=== PATIENT | male | born 1940 | race Caucasian/White ===

== ENCOUNTER 2017-04-29 16:17 | Inpatient (IN) | payer OTHER, MEDICAID ==
[~2017-04-29] VITALS: Ht 175.3 cm; Wt 81.7 kg
[~2017-04-29 16:17] MED LIST: ADA60 PO; ADALAT CC30 MG PO; ANT12.5 PO; ASPIR 8181 MG PO; BACTROBAN2% TP; CLINDAMYCI600 MG/50 IV; CLONIDINE HCL0.1 MG PO; COL100 PO; DIALYVITE 8001 TAB PO; GUAIFENESIN AN118 ML PO; HIB480 TP; LAC PO; LEV250PM IV; LEVAQUIN750 MG PO; LOPRESSOR100 MG PO; LOPRESSOR50 MG PO; MEVACOR40 MG PO; PHOSLO667 MG PO; ZOFI IV; ZYL100 PO
[2017-04-29 17:45] LABS: BASOPHIL % 0.9 % (0-2); PLATELET COUNT 191 x10^3mcL (130-400)
[2017-04-29 17:49] LABS: RED CELL DISTRIBUTION WIDTH 15.7 % (11.5-14.5)
[2017-04-29 18:00] LABS: ALKALINE PHOSPHATASE 69 U/L (46-116); ALT/SGPT 14 U/L (16-63); AST/SGOT 15 U/L (15-37); BILIRUBIN TOTAL 0.7 mg/dL (0.20-1.00); CALCIUM 9.3 mg/dL (8.5-10.1); CARBON DIOXIDE 28.2 mmol/L (21-32); CHLORIDE SERUM 96 mmol/L (98-107); GLUCOSE SERUM 95 mg/dL (74-106); LIPASE 75 IU/L (73-393); POTASSIUM SERUM 3.1 mmol/L (3.5-5.1); SODIUM SERUM 135 mmol/L (136-145); TOTAL PROTEIN, SERUM 7.4 g/dL (6.4-8.2); TRIGLYCERIDES 43 mg/dL (<150)
[2017-04-29 18:02] LABS: ALBUMIN 3.2 g/dL (3.4-5.0); CHOLESTEROL 112 mg/dL (<200); CHOLESTEROL/HDL RATIO 1.7; HDL CHOLESTEROL 66 mg/dL (40-60)
[2017-04-29 18:09] LABS: T3 TOTAL 0.45 ng/mL
[2017-04-29 18:22] LABS: FREE T4 1.3 ng/dL (0.76-1.46); FREE THYROXINE INDEX 2.3 ug/dL (1.4-4.5); T4(THYROXINE) 6.1 ug/dL (4.7-13.3)
[2017-04-29 20:24] VITALS: BP 120/73
[2017-04-29 21:00] VITALS: BP 120/73
[2017-04-29] MEDS ORDERED: RES30 PO (21:30)
[2017-04-30 05:31] VITALS: BP 109/69
[2017-04-30 07:35] VITALS: BP 124/70
[2017-04-30 07:43] LABS: BASOPHIL % 0.3 % (0-2); PLATELET COUNT 143 x10^3mcL (130-400)
[2017-04-30 07:46] LABS: RED CELL DISTRIBUTION WIDTH 15.2 % (11.5-14.5)
[2017-04-30 07:56] LABS: CALCIUM 8.8 mg/dL (8.5-10.1); CARBON DIOXIDE 26.2 mmol/L (21-32); CHLORIDE SERUM 97 mmol/L (98-107); GLUCOSE SERUM 96 mg/dL (74-106); PHOSPHOROUS 3.5 mg/dL (2.5-4.9); POTASSIUM SERUM 3.4 mmol/L (3.5-5.1); SODIUM SERUM 134 mmol/L (136-145)
[2017-04-30 07:59] LABS: CREATININE SERUM 5.1 mg/dL (0.7-1.3)
[2017-04-30 12:11] VITALS: BP 137/78
[2017-04-30 21:27] VITALS: BP 133/80
[2017-05-01] VITALS (8 sets, daily range): BP systolic 102–139; BP diastolic 58–76
[2017-05-01 07:08] LABS: BASOPHIL % 0.4 % (0-2); PLATELET COUNT 151 x10^3mcL (130-400)
[2017-05-01 07:28] LABS: CALCIUM 8.9 mg/dL (8.5-10.1); CARBON DIOXIDE 27.7 mmol/L (21-32); CHLORIDE SERUM 100 mmol/L (98-107); GLUCOSE SERUM 117 mg/dL (74-106); POTASSIUM SERUM 3.1 mmol/L (3.5-5.1); SODIUM SERUM 139 mmol/L (136-145)
[2017-05-01 07:39] LABS: CREATININE SERUM 4.2 mg/dL (0.7-1.3)
[2017-05-01 18:40] LABS: SOURCE FLUID THORACENTESIS
[2017-05-01 19:55] LABS: APPEARANCE FLUID HAZY; COLOR FLUID YELLOW; RBC FLUID 40 /cumm; WBC FLUID 180 /cumm
[2017-05-01 19:58] LABS: LYMPHOCYTE FLUID 42 %; MONOCYTE FLUID 14 %
[2017-05-02] VITALS (10 sets, daily range): BP systolic 110–135; BP diastolic 63–76
[2017-05-02 05:57] LABS: BASOPHIL % 0.3 % (0-2); PLATELET COUNT 147 x10^3mcL (130-400)
[2017-05-02 06:23] LABS: CARBON DIOXIDE 27.1 mmol/L (21-32); CHLORIDE SERUM 100 mmol/L (98-107); GLUCOSE SERUM 96 mg/dL (74-106); POTASSIUM SERUM 4.1 mmol/L (3.5-5.1); SODIUM SERUM 137 mmol/L (136-145)
[2017-05-02 06:44] LABS: RED CELL DISTRIBUTION WIDTH 14.9 % (11.5-14.5)
[2017-05-02 07:11] LABS: CREATININE SERUM 5.3 mg/dL (0.7-1.3)
[2017-05-02 16:28] LABS: APPEARANCE FLUID HAZY; COLOR FLUID PALE YELLOW; RBC FLUID 277 /cumm; SOURCE FLUID THORACENTESIS; WBC FLUID 5.56 /cumm
[2017-05-03] MEDS ORDERED: COR200 PO (04:10)
[2017-05-03] MEDS ORDERED: XARELTO10 M1 PO (04:13)
[2017-05-03] MEDS ORDERED: LOP100 (05:13)
[2017-05-03] MEDS ORDERED: MEV20 (05:15)
[2017-05-03 05:24] VITALS: BP 106/65
[2017-05-03 05:31] VITALS: BP 106/65
[2017-05-03 07:40] VITALS: BP 150/72
[2017-05-03 08:55] VITALS: Ht 175.3 cm; Wt 81.7 kg
== END 2017-05-03 09:05 | disposition home or self-care (01) | DRG 308 ==
LOC: ED 16:17 → DU 18:45
PROVIDERS: Family Medicine; Specialist; ADMIT Family Medicine
DX: I48.91 Unspecified atrial fibrillation (principal); N18.6 End stage renal disease; I50.43 Acute on chronic combined systolic (congestive) and diastolic (congestive) heart failure; D68.69 Other thrombophilia; I13.2 Hypertensive heart and chronic kidney disease with heart failure and with stage 5 chronic kidney disease, or end stage renal disease; E87.1 Hypo-osmolality and hyponatremia; E87.6 Hypokalemia; E11.59 Type 2 diabetes mellitus with other circulatory complications; D63.1 Anemia in chronic kidney disease; I35.0 Nonrheumatic aortic (valve) stenosis; E78.5 Hyperlipidemia, unspecified; M10.9 Gout, unspecified; Z99.2 Dependence on renal dialysis; Z68.26 Body mass index [BMI] 26.0-26.9, adult; Z85.51 Personal history of malignant neoplasm of bladder
CPT/HCPCS: 32555; 82962; 83880; 84439; 88344; 97110-GP; 97116-GP; 97530-GP; C1729; J1644; J1956; J3490; J7030; J7040; J7050; Q0092

== ENCOUNTER 2017-05-08 11:40 | Emergency (ER) | payer OTHER, MEDICAID ==
[~2017-05-08 11:40] MED LIST changes: +COR200 PO; +LOP100; +MEV20; +RES30 PO; +XARELTO10 M1 PO
[2017-05-08 13:39] VITALS: BP 108/77
== END 2017-05-08 13:39 | disposition home or self-care (01) ==
LOC: ED 11:40
DX: K59.00 Constipation, unspecified (principal); R10.30 Lower abdominal pain, unspecified; E11.22 Type 2 diabetes mellitus with diabetic chronic kidney disease; I12.0 Hypertensive chronic kidney disease with stage 5 chronic kidney disease or end stage renal disease; N18.6 End stage renal disease; Z99.2 Dependence on renal dialysis; Z88.0 Allergy status to penicillin; Z79.2 Long term (current) use of antibiotics; Z79.899 Other long term (current) drug therapy

== ENCOUNTER 2017-05-16 15:01 | Inpatient (IN) | payer OTHER, MEDICAID ==
[~2017-05-16] VITALS: Ht 177.8 cm; Wt 79.0 kg
[2017-05-16 16:31] LABS: BASOPHIL % 0.4 % (0-2); PLATELET COUNT 181 x10^3mcL (130-400)
[2017-05-16 16:34] LABS: RED CELL DISTRIBUTION WIDTH 16.5 % (11.5-14.5)
[2017-05-16 16:49] LABS: ALKALINE PHOSPHATASE 57 U/L (46-116); ALT/SGPT 14 U/L (16-63); AST/SGOT 10 U/L (15-37); BILIRUBIN TOTAL 0.65 mg/dL (0.20-1.00); CALCIUM 8.2 mg/dL (8.5-10.1); CARBON DIOXIDE 24.7 mmol/L (21-32); CHLORIDE SERUM 92 mmol/L (98-107); GLUCOSE SERUM 150 mg/dL (74-106); POTASSIUM SERUM 3.4 mmol/L (3.5-5.1); SODIUM SERUM 130 mmol/L (136-145)
[2017-05-16 16:50] LABS: ALBUMIN 2.5 g/dL (3.4-5.0)
[2017-05-16 16:52] LABS: CREATININE SERUM 5.8 mg/dL (0.7-1.3)
[2017-05-16] MEDS ORDERED: GABAPENTIN (18:02)
[2017-05-16] MEDS ORDERED: HUMALOG100 U/ML SC (18:02)
[2017-05-16 19:19] VITALS: BP 125/82
[2017-05-16] MEDS ORDERED: GABAPENTIN300 M4 PO (20:34)
[2017-05-16 21:09] LABS: PHOSPHOROUS 4.4 mg/dL (2.5-4.9)
[2017-05-16 21:12] LABS: CHOLESTEROL/HDL RATIO 1.6
[2017-05-16 21:19] LABS: T3 TOTAL 0.36 ng/mL
[2017-05-16 21:43] VITALS: BP 122/81
[2017-05-16 21:54] LABS: FREE T4 0.9 ng/dL (0.76-1.46); FREE THYROXINE INDEX 2.2 ug/dL (1.4-4.5); T4(THYROXINE) 5.9 ug/dL (4.7-13.3)
[2017-05-17] VITALS (12 sets, daily range): BP systolic 79–114; BP diastolic 48–79
[2017-05-17 06:21] LABS: BASOPHIL % 0.3 % (0-2); PLATELET COUNT 171 x10^3mcL (130-400)
[2017-05-17 06:38] LABS: CALCIUM 8.4 mg/dL (8.5-10.1); CARBON DIOXIDE 26.4 mmol/L (21-32); CHLORIDE SERUM 92 mmol/L (98-107); GLUCOSE SERUM 141 mg/dL (74-106); MAGNESIUM 2.2 mg/dL (1.8-2.4); PHOSPHOROUS 5.6 mg/dL (2.5-4.9); POTASSIUM SERUM 3.8 mmol/L (3.5-5.1); SODIUM SERUM 129 mmol/L (136-145)
[2017-05-17 06:49] LABS: CREATININE SERUM 6.2 mg/dL (0.7-1.3)
[2017-05-17 07:25] LABS: RED CELL DISTRIBUTION WIDTH 16.6 % (11.5-14.5)
[2017-05-18 06:25] VITALS: BP 99/59
[2017-05-18 07:45] VITALS: BP 91/58
[2017-05-18 10:03] VITALS: BP 90/58
[2017-05-18 15:03] VITALS: BP 108/75
[2017-05-18 17:50] VITALS: BP 110/64
[2017-05-18 21:30] VITALS: BP 113/67
[2017-05-19] VITALS (9 sets, daily range): BP systolic 98–123; BP diastolic 54–63
[2017-05-19 06:07] LABS: BASOPHIL % 0.2 % (0-2); PLATELET COUNT 131 x10^3mcL (130-400)
[2017-05-19 06:41] LABS: RED CELL DISTRIBUTION WIDTH 16.7 % (11.5-14.5)
[2017-05-19 06:45] LABS: CALCIUM 8.4 mg/dL (8.5-10.1); CARBON DIOXIDE 23.9 mmol/L (21-32); CHLORIDE SERUM 93 mmol/L (98-107); GLUCOSE SERUM 160 mg/dL (74-106); MAGNESIUM 1.9 mg/dL (1.8-2.4); PHOSPHOROUS 5.2 mg/dL (2.5-4.9); POTASSIUM SERUM 3.7 mmol/L (3.5-5.1); SODIUM SERUM 130 mmol/L (136-145)
[2017-05-19 07:04] LABS: CREATININE SERUM 5.3 mg/dL (0.7-1.3)
[2017-05-19 16:19] LABS: SOURCE FLUID PLEURAL
[2017-05-19 16:20] LABS: APPEARANCE FLUID HAZY; COLOR FLUID PALE YELLOW; RBC FLUID 2 /cumm; WBC FLUID 176 /cumm
[2017-05-19 16:21] LABS: LYMPHOCYTE FLUID 73 %; MONOCYTE FLUID 15 %
[2017-05-20 05:34] VITALS: BP 104/59
[2017-05-20 06:15] LABS: BASOPHIL % 0.5 % (0-2)
[2017-05-20 06:22] LABS: CALCIUM 8.3 mg/dL (8.5-10.1); CARBON DIOXIDE 31.6 mmol/L (21-32); CHLORIDE SERUM 94 mmol/L (98-107); GLUCOSE SERUM 99 mg/dL (74-106); POTASSIUM SERUM 3.3 mmol/L (3.5-5.1); SODIUM SERUM 130 mmol/L (136-145)
[2017-05-20 06:45] LABS: PLATELET COUNT 127 x10^3mcL (130-400); RED CELL DISTRIBUTION WIDTH 16.4 % (11.5-14.5)
[2017-05-20 07:46] LABS: CREATININE SERUM 4.2 mg/dL (0.7-1.3)
[2017-05-20 08:53] VITALS: BP 107/55
[2017-05-20 09:30] VITALS: BP 107/55
[2017-05-20 14:06] VITALS: BP 122/63
[2017-05-20] MEDS ORDERED: [UNRECOGNIZED DRUG - OTHER] IV (14:08)
[2017-05-20 14:11] VITALS: BP 122/63
[2017-05-20] MEDS ORDERED: CLE6PM IV (14:11)
[2017-05-20] MEDS ORDERED: LAC PO (14:12)
== END 2017-05-20 15:10 | DRG 291 ==
LOC: ED 15:01 → DU 17:47
PROVIDERS: Emergency Medicine; ADMIT Family Medicine
PROC: 0W993ZZ Drainage of Right Pleural Cavity, Percutaneous Approach (ICD-10-PCS; principal; 2017-05-18)
PROC: 0W993ZZ Drainage of Right Pleural Cavity, Percutaneous Approach (ICD-10-PCS; 2017-05-19)
DX: I13.2 Hypertensive heart and chronic kidney disease with heart failure and with stage 5 chronic kidney disease, or end stage renal disease (principal); I50.43 Acute on chronic combined systolic (congestive) and diastolic (congestive) heart failure; N18.6 End stage renal disease; E43 Unspecified severe protein-calorie malnutrition; J90 Pleural effusion, not elsewhere classified; E87.1 Hypo-osmolality and hyponatremia; I48.2 Chronic atrial fibrillation; I35.0 Nonrheumatic aortic (valve) stenosis; E87.6 Hypokalemia; E11.40 Type 2 diabetes mellitus with diabetic neuropathy, unspecified; D63.1 Anemia in chronic kidney disease; M10.9 Gout, unspecified; M54.9 Dorsalgia, unspecified; G89.29 Other chronic pain; Z68.25 Body mass index [BMI] 25.0-25.9, adult; Z99.2 Dependence on renal dialysis; Z79.4 Long term (current) use of insulin; Z79.82 Long term (current) use of aspirin; Z85.51 Personal history of malignant neoplasm of bladder
CPT/HCPCS: 32555; 82962; 83880; 84439; 88344; 97110-GP; 97116-GP; 97530-GP; A4719; C1729; J0885-EC; J1956; J3490; J7030; J7040; P9047; Q0092

== ENCOUNTER 2017-05-24 13:46 | Emergency (ER) | payer OTHER, MEDICAID ==
[~2017-05-24] VITALS: Ht 175.3 cm; Wt 79.4 kg
[~2017-05-24 13:46] MED LIST changes: +CLE6PM IV; +GABAPENTIN; +GABAPENTIN300 M4 PO; +HUMALOG100 U/ML SC; +[UNRECOGNIZED DRUG - OTHER] IV
[2017-05-24 14:59] LABS: BASOPHIL % 0.8 % (0-2)
[2017-05-24 15:02] LABS: CALCIUM 8.6 mg/dL (8.5-10.1); CARBON DIOXIDE 26.3 mmol/L (21-32); CHLORIDE SERUM 90 mmol/L (98-107); GLUCOSE SERUM 189 mg/dL (74-106); POTASSIUM SERUM 3.6 mmol/L (3.5-5.1); SODIUM SERUM 126 mmol/L (136-145)
[2017-05-24 15:05] LABS: PLATELET COUNT 114 x10^3mcL (130-400); RED CELL DISTRIBUTION WIDTH 15.6 % (11.5-14.5)
[2017-05-24 15:07] LABS: ALKALINE PHOSPHATASE 85 U/L (46-116); ALT/SGPT 24 U/L (16-63); AST/SGOT 19 U/L (15-37); BILIRUBIN TOTAL 0.6 mg/dL (0.20-1.00); TOTAL PROTEIN, SERUM 6.6 g/dL (6.4-8.2)
[2017-05-24 15:09] LABS: ALBUMIN 2.8 g/dL (3.4-5.0)
[2017-05-24 21:32] VITALS: BP 155/86
== END 2017-05-24 21:32 | disposition home or self-care (01) ==
LOC: ED 13:46
DX: J90 Pleural effusion, not elsewhere classified (principal); I10 Essential (primary) hypertension; E11.9 Type 2 diabetes mellitus without complications; Z99.2 Dependence on renal dialysis
CPT/HCPCS: 36415; 83880; Q0092

== ENCOUNTER 2017-06-06 16:07 | Inpatient (IN) | payer OTHER, MEDICAID ==
[~2017-06-06] VITALS: Ht 175.3 cm; Wt 86.2 kg
[2017-06-06 20:03] LABS: BASOPHIL % 0.3 % (0-2); PLATELET COUNT 238 x10^3mcL (130-400)
[2017-06-06 20:07] LABS: RED CELL DISTRIBUTION WIDTH 14.8 % (11.5-14.5)
[2017-06-06 20:14] LABS: ALBUMIN 2.7 g/dL (3.4-5.0); ALKALINE PHOSPHATASE 75 U/L (46-116); ALT/SGPT 19 U/L (16-63); AST/SGOT 21 U/L (15-37); BILIRUBIN TOTAL 0.34 mg/dL (0.20-1.00); CALCIUM 8.8 mg/dL (8.5-10.1); CARBON DIOXIDE 28.8 mmol/L (21-32); CHLORIDE SERUM 89 mmol/L (98-107); GLUCOSE SERUM 203 mg/dL (74-106); POTASSIUM SERUM 4.9 mmol/L (3.5-5.1); SODIUM SERUM 125 mmol/L (136-145); TOTAL PROTEIN, SERUM 6.7 g/dL (6.4-8.2)
[2017-06-06 20:17] LABS: CREATININE SERUM 4.1 mg/dL (0.7-1.3)
[2017-06-06 23:57] LABS: MAGNESIUM 2.4 mg/dL (1.8-2.4); PHOSPHOROUS 4.4 mg/dL (2.5-4.9)
[2017-06-06 23:58] LABS: CHOLESTEROL/HDL RATIO 1.5
[2017-06-07] VITALS (8 sets, daily range): BP systolic 101–135; BP diastolic 35–69
[2017-06-07 00:07] LABS: FREE T4 1.06 ng/dL (0.76-1.46); FREE THYROXINE INDEX 2.5 ug/dL (1.4-4.5); T4(THYROXINE) 7.1 ug/dL (4.7-13.3)
[2017-06-07 11:29] LABS: BASOPHIL % 0.2 % (0-2); PLATELET COUNT 193 x10^3mcL (130-400)
[2017-06-07 11:31] LABS: RED CELL DISTRIBUTION WIDTH 14.8 % (11.5-14.5)
[2017-06-07 14:45] LABS: T3 TOTAL 0.43 ng/mL
[2017-06-08] VITALS (10 sets, daily range): BP systolic 88–110; BP diastolic 45–57
[2017-06-08 06:11] LABS: BASOPHIL % 1.5 % (0-2); PLATELET COUNT 175 x10^3mcL (130-400)
[2017-06-08 06:13] LABS: RED CELL DISTRIBUTION WIDTH 14.9 % (11.5-14.5)
[2017-06-08 06:44] LABS: CALCIUM 8.5 mg/dL (8.5-10.1); CARBON DIOXIDE 25.4 mmol/L (21-32); CHLORIDE SERUM 91 mmol/L (98-107); CREATININE SERUM 3.2 mg/dL (0.7-1.3); GLUCOSE SERUM 122 mg/dL (74-106); POTASSIUM SERUM 3.6 mmol/L (3.5-5.1); SODIUM SERUM 127 mmol/L (136-145)
[2017-06-08 14:31] LABS: APPEARANCE FLUID CLEAR; COLOR FLUID YELLOW; SOURCE FLUID PLEURAL
[2017-06-08 14:32] LABS: LYMPHOCYTE FLUID 84 %; MONOCYTE FLUID 5 %; RBC FLUID 258 /cumm; WBC FLUID 48 /cumm
[2017-06-09] VITALS (8 sets, daily range): BP systolic 97–116; BP diastolic 31–77
[2017-06-09 10:50] LABS: BASOPHIL % 0 % (0-2); PLATELET COUNT 158 x10^3mcL (130-400); RED CELL DISTRIBUTION WIDTH 14.8 % (11.5-14.5)
[2017-06-09 10:54] LABS: CALCIUM 7.7 mg/dL (8.5-10.1); CARBON DIOXIDE 28.9 mmol/L (21-32); CREATININE SERUM 2.1 mg/dL (0.7-1.3); GLUCOSE SERUM 126 mg/dL (74-106)
[2017-06-09 11:34] LABS: CHLORIDE SERUM 92 mmol/L (98-107); SODIUM SERUM 135 mmol/L (136-145)
[2017-06-09 11:56] LABS: POTASSIUM SERUM 2.3 mmol/L (3.5-5.1)
[2017-06-09 18:40] LABS: CALCIUM 8.4 mg/dL (8.5-10.1); CARBON DIOXIDE 28.4 mmol/L (21-32); CHLORIDE SERUM 87 mmol/L (98-107); CREATININE SERUM 3.2 mg/dL (0.7-1.3); GLUCOSE SERUM 126 mg/dL (74-106); POTASSIUM SERUM 3.5 mmol/L (3.5-5.1); SODIUM SERUM 131 mmol/L (136-145)
[2017-06-10 05:11] VITALS: BP 108/47
[2017-06-10 09:05] VITALS: BP 98/48
[2017-06-10 12:23] VITALS: BP 98/48
[2017-06-10] MEDS ORDERED: BAC PO ×2 (13:08→14:08)
[2017-06-10] MEDS ORDERED: ASPIR 8181 MG (15:01)
[2017-06-10 15:04] VITALS: BP 102/56
== END 2017-06-10 15:50 | DRG 291 ==
LOC: ED 16:07 → DU 06-07 00:03
PROVIDERS: Emergency Medicine; Internal Medicine; ADMIT Family Medicine
PROC: 0W9B3ZZ Drainage of Left Pleural Cavity, Percutaneous Approach (ICD-10-PCS; principal; 2017-06-08)
PROC: 0W993ZZ Drainage of Right Pleural Cavity, Percutaneous Approach (ICD-10-PCS; 2017-06-09)
DX: I13.2 Hypertensive heart and chronic kidney disease with heart failure and with stage 5 chronic kidney disease, or end stage renal disease (principal); I50.43 Acute on chronic combined systolic (congestive) and diastolic (congestive) heart failure; E43 Unspecified severe protein-calorie malnutrition; N17.0 Acute kidney failure with tubular necrosis; N18.6 End stage renal disease; L89.153 Pressure ulcer of sacral region, stage 3; E87.1 Hypo-osmolality and hyponatremia; J91.8 Pleural effusion in other conditions classified elsewhere; B95.62 Methicillin resistant Staphylococcus aureus infection as the cause of diseases classified elsewhere; E11.21 Type 2 diabetes mellitus with diabetic nephropathy; M62.58 Muscle wasting and atrophy, not elsewhere classified, other site; I16.0 Hypertensive urgency; I48.0 Paroxysmal atrial fibrillation; K31.89 Other diseases of stomach and duodenum; D63.1 Anemia in chronic kidney disease; E87.6 Hypokalemia; E87.8 Other disorders of electrolyte and fluid balance, not elsewhere classified; E78.5 Hyperlipidemia, unspecified; Z66 Do not resuscitate; Z51.5 Encounter for palliative care; Z99.2 Dependence on renal dialysis; Z79.82 Long term (current) use of aspirin; Z79.4 Long term (current) use of insulin; Z79.01 Long term (current) use of anticoagulants; Z85.51 Personal history of malignant neoplasm of bladder
CPT/HCPCS: 32555; 82962; 83880; 84439; A4719; C1729; J1956; J3480; J3490; J7030; J7040; J7620; Q0092